=== PATIENT | female | born 1990 ===

== ENCOUNTER 2020-10-23 10:00 | Inpatient (IN) | payer OTHER ==
[~2020-10-23] VITALS: Ht 160 cm; Wt 102.5 kg
[2020-10-27] MEDS ORDERED: PRENATAL TABLE1 EAC1 PO (14:42)
[2020-10-27] MEDS ORDERED: AMPICILLIN SOD500 MG PO (14:43)
== END 2020-10-30 14:24 | disposition home or self-care (01) | DRG 788 ==
LOC: LDR 10-27 12:36 → OB/GYN 10-27 12:36
PROVIDERS: ADMIT Obstetrics & Gynecology; ATTEND Obstetrics & Gynecology
PROC: 4A1HXFZ Monitoring of Products of Conception, Cardiac Rhythm, External Approach (ICD-10-PCS; 2020-10-27)
PROC: 10D00Z1 Extraction of Products of Conception, Low, Open Approach (ICD-10-PCS; principal; 2020-10-27 14:00)
DX: O34.211 Maternal care for low transverse scar from previous cesarean delivery (principal); O99.824 Streptococcus B carrier state complicating childbirth; Z3A.38 38 weeks gestation of pregnancy; Z37.0 Single live birth